=== PATIENT | male | born 1940 | race Caucasian/White ===

== ENCOUNTER → 2018-10-25 13:14 | Outpatient (CLI) | payer MEDICARE, OTHER, SELFPAY ==
--- NOTE | 2018-10-25 | DI.MRI.S_ITS ---
PROCEDURE: MR HIP RT WO CON INDICATIONS: RIGHT HIP PAIN TECHNIQUE: Noncontrast coronal T1 spin echo and STIR through the bony pelvis. Coronal and axial T2 fast spin echo with fat saturation, sagittal T1 spin echo, and oblique axial T2 fast spin echo with fat saturation through the hip. COMPARISON: [facility], CR, XR PELVIS WITH LATERAL HIP RIGHT, 10/18/2018, 14:45. FINDINGS: Image quality: Diagnostic. Bones and joints: There is no acute fracture, dislocation, suspicious osseous lesion, or evidence of avascular necrosis involving the right hip. There are mild to moderate degenerative changes of the right hip. 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 No significant glenohumeral joint effusion is evident. The alpha angle of the right femoral head measures less than 55?. The remainder of the imaged osseous structures of the pelvis demonstrate no fractures or suspicious osseous lesions. Age-appropriate degenerative changes of the other pelvic joints are noted. Labrum: Evaluation of the labrum is difficult without intra-articular contrast. However, there is tearing identified along the anterosuperior margin of the labrum extending from the 12 o'clock position to the 10 o'clock position. No large paravertebral cysts are evident. Tendons and ligaments: The ligamentum teres is moderately irregular and may be partially torn. The distal right gluteus medius and gluteus minimus tendons are intact and otherwise unremarkable. The proximal right hamstrings tendons are within normal limits, but may demonstrate mild proximal tendinopathy. The distal iliopsoas tendons are intact. Soft tissues: Visualized muscles demonstrate normal bulk and internal signal. Quadratus femoris muscle demonstrates no internal edema to suggest ischiofemoral impingement. The proximal sciatic neurovascular bundle appears normal adjacent to the hamstring tendons. No free pelvic fluid. Bladder wall thickness is normal. Genitourinary structures and bowel loops appear normal where visualized. Our, moderate amount of stool may be present within the colon. Thickening of the urinary bladder wall may be exaggerated by incomplete distention. IMPRESSION: 1. Mild to moderate degenerative changes of the right hip. No fractures. 2. Small anterosuperior right acetabular labral tear. 3. Minimal proximal right hamstrings tendinopathy. Dictated by: Migel Orr M.D. on 10/25/2018 at 14:07 Approved by: Migel Orr M.D. on 10/25/2018 at 14:13
== END ==
PROVIDERS: PCP Physician Assistant Medical; Visit Provider Orthopaedic Surgery
DX: M25.551 Pain in right hip (principal); S73.191A Other sprain of right hip, initial encounter; M16.11 Unilateral primary osteoarthritis, right hip
CPT/HCPCS: 73721